=== PATIENT | female | born 1975 | race Caucasian/White ===

== ENCOUNTER 2020-09-10 12:05 | Outpatient (CLI) | payer OTHER, SELFPAY ==
--- NOTE | 2020-09-10 12:14 | XR_ITS ---
WS: [id number] Right hip, AP and frog-leg views, 09/10/2020 Clinical Data: BURSITIS, RIGHT HIP Comparison: None. Findings: Osteoarthritic narrowing with sclerosis and cyst formation is present in the right hip. The right SI joint and the pubic symphysis are unremarkable. The soft tissues are normal. XR/XR hip RT 2-3V wo/w pel* [id number] Impression: Osteoarthritis of the right hip.
== END 2020-09-10 12:06 | disposition home or self-care (01) ==
LOC: RAD 12:10
PROVIDERS: PCP Nurse Practitioner Family; Visit Provider Nurse Practitioner Family
DX: M70.71 Other bursitis of hip, right hip (principal); M16.11 Unilateral primary osteoarthritis, right hip
CPT/HCPCS: 73502

== ENCOUNTER → 2022-09-12 15:07 | Outpatient (BNVA) | payer OTHER, SELFPAY | PROVIDERS: PCP Nurse Practitioner Family; Visit Provider Nurse Practitioner Family | DX: M17.12 Unilateral primary osteoarthritis, left knee (principal); M16.12 Unilateral primary osteoarthritis, left hip | CPT/HCPCS: 73502; 73562 ==

== ENCOUNTER → 2023-09-17 15:12 | Outpatient (BNVA) | payer OTHER, SELFPAY | PROVIDERS: PCP Nurse Practitioner Family; Referring Provider Nurse Practitioner Family; Visit Provider Nurse Practitioner Family | DX: M79.641 Pain in right hand (principal) | CPT/HCPCS: 73130 ==

== ENCOUNTER → 2023-10-03 15:04 | Outpatient (BNVA) | payer OTHER, SELFPAY | PROVIDERS: PCP Nurse Practitioner Family; Referring Provider Nurse Practitioner Family; Visit Provider Internal Medicine Cardiovascular Disease | DX: R07.9 Chest pain, unspecified (principal) | CPT/HCPCS: 93005 ==

== ENCOUNTER → 2023-12-26 15:20 | Outpatient (BNVA) | payer OTHER, SELFPAY | PROVIDERS: PCP Nurse Practitioner Family; Visit Provider Specialist | DX: M25.561 Pain in right knee; M25.562 Pain in left knee; G89.29 Other chronic pain; M06.4 Inflammatory polyarthropathy | CPT/HCPCS: 36415; 73560; 73565; 80053; 84550; 85025; 85651; 86140; 86200; 86225; 86235; 86431 ==

== ENCOUNTER 2024-02-20 10:50 | Outpatient (CLI) | payer OTHER, SELFPAY ==
[2024-02-20 11:21] VITALS: BMI 28.7
--- NOTE | 2024-02-20 11:21 | ECG_ITS ---
[facility] Test Date: 2024-02-20 Pat Name: Jennifer Huizar Department: Room: Gender: Female Care Associate: Yisselchad GarzaLanette : 1975 Requested By: Kym Andino Order Number: [id number] Zeynep MD: Kym Andino M.D. Interpretive Statements NAME OF STUDY: TREADMILL STRESS TEST INDICATION: CP, palpitations , PROCEDURE: At the baseline, the patient's blood pressure was 105/70 with a heart rate of 89. The baseline electrocardiogram showed normal sinus rhythm with normal ST-Ts. Occasional PVCs. The patient exercised for 5 minutes on a standard Yohan protocol. Patient attained a maximum heart rate of 155 beats per minute(90% of the maximum predicted heart rate) with a blood pressure at the peak exercise of 161/78 mm Hg. The EKG at the peak exercise revealed no significant changes. Patient did not have any chest pain or any significant cardiac arrhythmias with the exercise. There was more frequent PVCs lasting for a short period during exercise. But towards the end there was complete disappearance of the PVCs During the recovery phase, there were no new changes. Blood pressure at the end of the recovery phase was 130/88 mm Hg with a heart rate of 100 per minute. CONCLUSION: 1. No similar EKG changes with the treadmill exercise. 2. No exercise-induced chest pain or significant cardiac arrhythmia 3. Slightly impaired exercise tolerance, attained a maximum of 7.0 METs Electronically Signed On 02-21-2024 23:12:39 CDT by Kym Andino M.D. [id number]
[2024-02-20 11:53] VITALS: BP 130/88; PULSE 99
== END 2024-02-20 10:51 | disposition home or self-care (01) ==
PROVIDERS: PCP Nurse Practitioner Family; Visit Provider Internal Medicine Cardiovascular Disease
DX: R07.89 Other chest pain (principal); R00.2 Palpitations; R06.09 Other forms of dyspnea
CPT/HCPCS: 93017

== ENCOUNTER 2024-06-06 06:03 | Outpatient (CLI) | payer OTHER, SELFPAY ==
--- NOTE | 2024-06-06 06:15 | USCV_ITS ---
Jennifer Huizar Age: 48 Gender: F : 1975 Exam Date: 06/06/2024 06:29 Ordering Phys: Kym Andino MD ([email or web address]) Technologist: Donavon Echevarria Exam Location: [facility] [place] Indication: heart murmur BP: 143 / 82 HR: 73 Rhythm: Sinus Technical Quality: Adequate MEASUREMENTS (Male / Female) Normal Values 2D ECHO LV Diastolic Diameter PLAX 4.9 cm 4.2 - 5.9 / 3.9 - 5.3 cm IVS Diastolic Thickness 1.1 cm 0.6 - 1.0 / 0.6 - 0.9 cm IVS Systolic Thickness 1.5 cm LVPW Diastolic Thickness 1.4 cm 0.6 - 1.0 / 0.6 - 0.9 cm LVPW Systolic Thickness 1.6 cm LVOT Diameter 2.1 cm LV Ejection Fraction 2D Teich 64.4 % LV Ejection Fraction MOD 4C 68.6 % LV Ejection Fraction MOD 2C 64.6 % LV Ejection Fraction 2C AL 66.1 % LA Diameter 3.6 cm RA Systolic Volume 4C AL 31.9 ml RA Systolic Volume 4C MOD 33.0 ml LA Sys Volume AL 44.2 cm cubed LA Sys Volume Index AL 23.5 cm cubed/m squared Aorta at Sinotubular Diameter 2.2 cm IVC Diameter 1.7 cm M-MODE LA Ao Ratio MM 1.0 AV Cusp Separation MM 2.0 cm DOPPLER AV Peak Velocity 109.0 cm/s LVOT Peak Velocity 110.0 cm/s AV Area Cont Eq vti 3.3 cm squared AV Area Cont Eq pk 3.4 cm squared MV Peak Velocity 105.0 cm/s MV Area PHT 4.6 cm squared Mitral E to A Ratio 1.1 TV Peak Velocity 224.0 cm/s TR Peak Velocity 248.0 cm/s TR Peak Gradient 24.6 mmHg TR Mean Velocity 194.0 cm/s TR Mean Gradient 16.8 mmHg TR Velocity Time Integral 69.0 cm RV Ejection Time 0.3 s FINDINGS Left Ventricle Normal left ventricular size and systolic function, EF 66%.no regional wall motion abnormalities. Right Ventricle The right ventricle is normal in size and function. Right Atrium The right atrium is normal in size. Left Atrium The left atrium is normal in size. Mitral Valve No gross abnormalities noted Aortic Valve No gross abnormalities noted Tricuspid Valve Trace tricuspid valve regurgitation. Estimated pulmonary artery peak systolic pressure within normal limits Pulmonic Valve No gross abnormalities noted Pericardium Normal pericardium without effusion. Aorta Normal ascending aorta dimension. IVC Inferior vena cava not visualized. CONCLUSIONS Normal left ventricular size and systolic function, EF 66%.no regional wall motion abnormalities. Trace tricuspid valve regurgitation. Estimated pulmonary artery peak systolic pressure within normal limits. There is no pericardial effusion. There are no intracardiac masses. No similar previous studies are available for comparison Dr Kym Andino MD FACC (Electronically Signed) Final Date: 08 June 2024 19:28 S
== END 2024-06-06 06:04 | disposition home or self-care (01) ==
LOC: RAD 06:04
PROVIDERS: PCP Nurse Practitioner Family; Visit Provider Internal Medicine Cardiovascular Disease
DX: R06.09 Other forms of dyspnea (principal)
CPT/HCPCS: 93306

== ENCOUNTER → 2024-10-02 11:45 | Outpatient (BNVA) | payer OTHER, SELFPAY | PROVIDERS: PCP Nurse Practitioner Family; Visit Provider Podiatrist Foot & Ankle Surgery | DX: M79.671 Pain in right foot (principal); M79.672 Pain in left foot; M84.372A Stress fracture, left ankle, initial encounter for fracture; M76.822 Posterior tibial tendinitis, left leg; X58.XXXA Exposure to other specified factors, initial encounter; R00.2 Palpitations; I49.9 Cardiac arrhythmia, unspecified | CPT/HCPCS: 36415; 73630; 84439; 84443; 84481 ==